=== PATIENT | male | born 1940 | race Caucasian/White ===

== ENCOUNTER → 2016-10-30 | Outpatient (CLI) | payer BC ==
[~2016-10-30] MED LIST: AMLO-110 PO; AMLO2.5T PO; ASPEC81 PO; ATOR-24 PO; CHOL100010 PO; CLOP1TAB15 PO; DUTA0.5C PO; DUTACAP PO; HYDR12.56 PO; INSHI7030 SC; INSU1INJ SC; LISI40TA PO; MULT-506 PO; PLV75 PO; TAMS0.4C38 PO; TRAZ50TA35 PO
--- NOTE | 2016-10-30 07:50 | DIAGNOSTIC IMAGING REPORT ---
SACRUM COCCYX MIN 2 VIEWS CLINICAL HISTORY: Sacral pain. COMPARISON STUDY: No previous studies for comparison. FINDINGS: A left iliac stent is incidentally noted. The sacroiliac joints are intact without evidence for ankylosis. No fracture or suspicious lesion is identified within the sacrum or coccyx. IMPRESSION: No abnormality of the sacrum or coccyx identified. Electronically signed by: Naseem Proctor M.D. 10/30/2016 7:48 AM Dictated Date/Time: 10/30/2016 7:47 AM
== END | disposition home or self-care (01) ==
LOC: C.RAD 07:11
PROVIDERS: ATTEND Family Medicine
DX: M53.3 Sacrococcygeal disorders, not elsewhere classified (principal)

== ENCOUNTER → 2016-11-28 | Outpatient (CLI) | payer BC ==
[~2016-11-28] MED LIST changes: +GADAVIST IV PRN
--- NOTE | 2016-11-28 12:46 | DIAGNOSTIC IMAGING REPORT ---
Study: MRI pelvis HISTORY: Sacrococcygeal pain. FINDINGS: Normal signal characteristics the osseous structures throughout the bony pelvis. Coccygeal region is unremarkable. There is no bone marrow infiltrative process. There is no evidence for abscess collection or bony destruction.. Bowel pattern is unremarkable. There is no bone marrow infiltrative process. There are mild degenerative changes of the hips bilaterally. There is no significant adenopathy. Musculature of the pelvis is unremarkable. IMPRESSION: 1. Negative study of the bony pelvis and sacrococcygeal region. 2. No evidence for coccydynia 3. Mild degenerative change of the hips bilaterally. Electronically signed by: Kurt Andrew M.D. 11/28/2016 12:45 PM Dictated Date/Time: 11/28/2016 12:38 PM
== END | disposition home or self-care (01) ==
LOC: C.MRI 10:16
PROVIDERS: ATTEND Family Medicine
DX: M53.3 Sacrococcygeal disorders, not elsewhere classified (principal)

== ENCOUNTER → 2017-02-14 | Day surgery (SDC) | payer BC ==
[2017-02-13 13:18] VITALS: Ht 170.2 cm; Wt 61.4 kg
[~2017-02-14] VITALS: Ht 170.2 cm; Wt 61.4 kg
[~2017-02-14] MED LIST changes: -AMLO2.5T PO; -ASPEC81 PO; +BUPIVACAINE 0.25% 2.5MG/ML PF 10 ML VIAL ONE; -DUTACAP PO; -GADAVIST IV PRN; +LIDOCAINE HCL 1% MPF 5 ML VIAL ONE; -PLV75 PO
--- NOTE | 2017-02-14 14:17 | History & Physical Bridge - SC ---
H&P Re-Evaluation Bridge Note: I have examined the patient, reviewed the History & Physical and in the interval since the performance of the History & Physical I have noted the following changes of clinical significance: No changes noted
[2017-02-14 14:38] VITALS: TEMP 36.3
--- NOTE | 2017-02-14 14:42 | Discharge Instructions ---
Discharge Instructions Date of Service Feb 14, 2017. Visit Reason for Visit: Sacrococcygeal Ligament Disorder Discharge Discharge Diagnosis / Problem: low back pain Discharge Goals Goal(s): Decrease discomfort, Improve function Activity Recommendations Activity Limitations: resume your previous activity Anesthesia . Post Anesthesia Instructions: If you have had General Anesthesia or IV Sedation: * Do not drive today. * Resume driving when surgeon permits. * Do not make important decisions or sign legal documents today. * Call surgeon for: 1. Temperature elevations greater than 101 degrees F. 2. Uncontrollable pain. 3. Excessive bleeding. 4. Persistent nausea and vomiting. 5. Medication intolerance (nausea, vomiting or rash). * For nausea and vomiting use only clear liquids such as: tea, soda, bouillon until nausea subsides, then gradually increase diet as tolerated. * If you have any concerns or questions, call your surgeon's office. If physician is unavailable and it is an emergency, call 911 or go to the nearest emergency room. . Diet Recommendations Recommended Home Diet: no limitations Procedures Procedures Performed: SACROCOCCYGEAL LIGAMENT INJECTION Pending Studies Studies pending at discharge: no Medical Emergencies . Who to Call and When: Medical Emergencies: If at any time you feel your situation is an emergency, please call 911 immediately. . Non-Emergent Contact Non-Emergency issues call your: Specialist . . "Provider Documentation" section prepared by Jefferson Cristobal. .
[2017-02-14 14:50] VITALS: O2SAT 98
[2017-02-14 14:53] VITALS: BP 182/73
--- NOTE | 2017-02-14 15:03 | OPERATIVE REPORT ---
DATE OF OPERATION: 02/14/2017 PREOPERATIVE DIAGNOSIS: Coccydynia. POSTOPERATIVE DIAGNOSIS: Same. PROCEDURE: Sacrococcygeal ligament injection under fluoroscopic guidance. SURGEON: Dr. Jefferson Cristobal. INDICATIONS: The patient is a 77-year-old white male that presents today with a 30-year history of coccydynia following a fall off of a roof. He describes the pain at times can be excruciating after he has been sitting for a while and goes to stand. He localizes to 1 finger to the sacrococcygeal ligament area. PHYSICAL EXAMINATION: GENERAL: Pleasant male seated. DICTATION ENDED HERE!! I attest to the content of the Intraoperative Record and any orders documented therein. Any exception s are noted below.
--- NOTE | 2017-02-14 15:11 | OPERATIVE REPORT ---
DATE OF OPERATION: 02/14/2017 PREOPERATIVE DIAGNOSIS: Coccydynia. POSTOPERATIVE DIAGNOSIS: Same. PROCEDURE: Sacrococcygeal ligament injection under fluoroscopic guidance. SURGEON: Dr. Jefferson Cristobal. INDICATIONS: The patient is a 77-year-old male who presents today for sacrococcygeal ligament injection. He has a history of coccydynia for 30 years that occurred after falling off of a roof. He has pain that located 1 fingerbreadth to the sacrococcyx area that can be excruciating at times with prolonged sitting. PHYSICAL EXAMINATION: Pleasant male seated comfortably. He has point tenderness to palpation of the sacrococcygeal ligament area. It is uncomfortable to touch. CONSENT: Verbal and written consent was obtained from the patient. Risks and benefits were reviewed. Risks including infection and allergic reaction were reviewed. He wishes to proceed. PROCEDURE: The patient was taken back to the special procedures room of the [facility] where he was maintained in a prone position in special procedures room and backside was cleansed with Betadine x3 and a dry sterile dressing was applied. Fluoroscope was used to identify the sacrococcygeal ligament injection and the overlying skin was anesthetized with 1 mL lidocaine 1% with a 25 gauge 1.5-inch needle. A 25 gauge 3.5 inch spinal needle was then directed into the sacrococcygeal ligament region. He then underwent injection after negative aspiration of 40 mg of Depo-Medrol and 1 mL of bupivacaine 0.25%. Injection was well tolerated. DISPOSITION: 1. The patient is taken out into the discharge recovery area where he will be discharged home once discharge criteria have been met. 2. Follow up in the [facility] office in 2-4 weeks. I attest to the content of the Intraoperative Record and any orders documented therein. Any exception s are noted below.
== END | disposition home or self-care (01) ==
LOC: X.SURG 13:02
PROVIDERS: ATTEND Physical Medicine & Rehabilitation
DX: M53.3 Sacrococcygeal disorders, not elsewhere classified (principal); E11.9 Type 2 diabetes mellitus without complications; I10 Essential (primary) hypertension; N28.9 Disorder of kidney and ureter, unspecified; Z86.73 Personal history of transient ischemic attack (TIA), and cerebral infarction without residual deficits; Z86.39 Personal history of other endocrine, nutritional and metabolic disease; Z79.02 Long term (current) use of antithrombotics/antiplatelets; Z79.4 Long term (current) use of insulin; Z79.899 Other long term (current) drug therapy

== ENCOUNTER 2017-05-17 10:22 | Emergency (ER) | payer BC ==
[~2017-05-17] VITALS: Ht 167.6 cm; Wt 57.0 kg
[~2017-05-17 10:22] MED LIST changes: -BUPIVACAINE 0.25% 2.5MG/ML PF 10 ML VIAL ONE; -LIDOCAINE HCL 1% MPF 5 ML VIAL ONE
[2017-05-17 10:25] VITALS: TEMP 36.4; Ht 167.6 cm; Wt 57.0 kg
[2017-05-17] MEDS ORDERED: OPTIRAY 320 IV PRN (11:00)
[2017-05-17] MEDS ORDERED: CHOL2000 PO (11:02)
[2017-05-17 11:20] LABS: BUN/CREATININE RATIO 14.9 (10-20); CALCIUM 9.8 mg/dl (8.5-10.1); CREATININE 1.56 mg/dl (0.60-1.40); POTASSIUM 4.3 mmol/L (3.5-5.1)
[2017-05-17 11:22] LABS: BASO % 1.3 %; BASO ABS # 0.11 K/uL (0-0.2); COMPLETE YES; EOS % 2.1 %; HEMATOCRIT 39.9 % (42-52); IG% 0.2 %; LYMPH % 11.9 %; LYMPH ABS # 0.98 K/uL (1.2-3.4); MEAN CELL VOLUME 98.3 fL (80-100); MEAN CORPUSCULAR HGB CONC 34.6 g/dl (32-36); MONO % 5.2 %; NEUT % 79.3 %; PLATELET COUNT 223 K/uL (130-400); RED BLOOD COUNT 4.06 M/uL (4.7-6.1); WHITE BLOOD COUNT 8.24 K/uL (4.8-10.8)
[2017-05-17 11:23] LABS: ALB/GLOB RATIO 1.3 (0.9-2)
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
[2017-05-17 11:56] LABS: PROTHROMBIN TIME (PATIENT) 10.8 SECONDS (9.0-12.0)
[2017-05-17] MEDS ORDERED: SODIUM CHLORIDE 0.9% 1000ML 1,000 ML IV STA (12:08)
--- NOTE | 2017-05-17 13:37 | DIAGNOSTIC IMAGING REPORT ---
CT OF THE ABDOMEN AND PELVIS WITH CONTRAST CLINICAL HISTORY: Right lower quadrant abdominal pain. Right sided back pain. COMPARISON STUDY: Renal ultrasound July 16, 2013. TECHNIQUE: Following IV administration of 93 mL of Optiray-320, axial images of the abdomen and pelvis were obtained from the lung bases to the proximal femurs. Images were reviewed in the axial, sagittal, and coronal planes. IV contrast was administered without complication. A dose lowering technique was utilized adhering to the principles of ALARA. CT DOSE: 254.80 mGy.cm FINDINGS: A 5 mm right middle lobe nodule is unchanged since CT of October 29, 2008. This is benign given stability. Extensive coronary artery calcification. No pneumatosis, free air or portal venous gas is present. Evaluation of the abdomen and pelvis is difficult given paucity of intra-abdominal fat as well as mild motion artifact. There is extensive atherosclerotic plaque of the abdominal aorta and major branch vessels which is suboptimally assessed on this exam. Bilateral iliac stents appear patent on this exam. There is no biliary or pancreatic ductal dilatation. There is moderate bilateral renal cortical thinning without hydronephrosis. There is no evidence for a bowel obstruction. No peripancreatic or pericholecystic infiltration is evident. The main, left and right portal veins are patent. The appendix is not visualized but there is no right lower quadrant inflammation. Note is made of mild dextroscoliosis of the lumbar spine with moderate to severe multilevel degenerative disc disease and facet arthrosis. There are bilateral L5 pars defects with minimal anterolisthesis of of L5 on S1. IMPRESSION: 1. No acute process within the abdomen or pelvis although evaluation is difficult given paucity of intra-abdominal fat and mild motion artifact. 2. Extensive atherosclerotic plaque of the abdominal aorta and major branch vessels. Bilateral iliac artery stents appear patent on this exam. 3. Nonvisualization of the appendix but no right lower quadrant inflammation. No bowel obstruction. 4. Moderate to severe multilevel degenerative disc disease and facet arthrosis of the lumbar spine. Mild dextroscoliosis of the lumbar spine. Electronically signed by: Naseem Proctor M.D. 05/17/2017 1:35 PM Dictated Date/Time: 05/17/2017 1:23 PM
[2017-05-17 14:25] LABS: URINE APPEARANCE CLEAR (CLEAR); URINE BILIRUBIN NEG (NEG); URINE COLOR YELLOW; URINE EPITHELIAL CELL AUTO 0-5 /lpf (0-5); URINE NITRITE NEG (NEG); URINE SPECIFIC GRAVITY 1.032 (1.000-1.030); UROBILINOGEN NEG (NEG); ZZUR CULT IF INDIC CLEAN CATCH NO
[2017-05-17 14:26] LABS: MANUAL MICROSCOPIC REQUIRED? NO; REVIEW REQ? NO
[2017-05-17 14:27] LABS: SULFASALICYLIC ACID NEG (NEG)
[2017-05-17 14:44] VITALS: BP 176/76; PULSE 53; O2SAT 96
== END 2017-05-17 14:46 | disposition home or self-care (01) ==
LOC: C.EDB 10:23
DX: R10.9 Unspecified abdominal pain (principal); M54.5 Low back pain; G89.29 Other chronic pain; E11.9 Type 2 diabetes mellitus without complications; I65.29 Occlusion and stenosis of unspecified carotid artery; E78.5 Hyperlipidemia, unspecified; F17.200 Nicotine dependence, unspecified, uncomplicated; Z79.4 Long term (current) use of insulin; Z79.02 Long term (current) use of antithrombotics/antiplatelets; Z81.8 Family history of other mental and behavioral disorders; Z83.3 Family history of diabetes mellitus; Z82.49 Family history of ischemic heart disease and other diseases of the circulatory system; Z80.7 Family history of other malignant neoplasms of lymphoid, hematopoietic and related tissues; Z84.89 Family history of other specified conditions